=== PATIENT | female | born 1955 | race Caucasian/White ===

== ENCOUNTER 2020-07-22 10:11 | Emergency (ER) | payer MEDICAID ==
[~2020-07-22] VITALS: Ht 154.9 cm; Wt 84.7 kg
[~2020-07-22 10:11] MED LIST: CITA-109 PO; OMEP-84 PO
[2020-07-22 10:40] VITALS: BP 136/85
--- NOTE | 2020-07-22 13:04 | NUR ---
Attempted to call patient back to room for the third time and she was not in lobby. Called patient on listed number and number had been disconnected. Dr. Alvarado aware.
== END 2020-07-22 13:08 | disposition left against medical advice (07) ==
LOC: ER 10:12
DX: M25.551 Pain in right hip (principal); Z53.21 Procedure and treatment not carried out due to patient leaving prior to being seen by health care provider

== ENCOUNTER 2023-05-13 15:37 | Emergency (ER) | payer MEDICARE, MEDICAID ==
[~2023-05-13] VITALS: Ht 154.9 cm; Wt 90.9 kg
[2023-05-13] MEDS: LORazepam 1 MG tablet PO ONE (16:19)
[2023-05-13 17:24] VITALS: BP 101/72; PULSE 78; RESP 15; TEMP 98.6; O2SAT 98
== END 2023-05-13 17:26 | disposition home or self-care (01) ==
LOC: ER 15:37
DX: S16.1XXA Strain of muscle, fascia and tendon at neck level, initial encounter (principal); F41.9 Anxiety disorder, unspecified; Z88.0 Allergy status to penicillin; Z88.8 Allergy status to other drugs, medicaments and biological substances; V89.2XXA Person injured in unspecified motor-vehicle accident, traffic, initial encounter; Y93.89 Activity, other specified; Y92.89 Other specified places as the place of occurrence of the external cause; Y99.8 Other external cause status
CPT/HCPCS: 72040; 99283

== ENCOUNTER 2023-08-24 06:49 | Outpatient (CLI) | payer MEDICARE, MEDICAID ==
[~2023-08-24 06:49] MED LIST changes: +GADOTERATE MEGLUMINE 7.5 MMOL/15 ML VIAL IV ONE; +LIDOcaine 1% 30ml preserv. free vial ONE; +LIDOcaine 1%/PF 5ML 10 MG/ML VIAL ONE; +iohexol 300 MG/1 ML 50ml polymer ONE
== END 2023-08-24 23:59 | disposition home or self-care (01) ==
LOC: RAD 06:49 → EDSTATUS 07:30 → RAD 23:59
PROVIDERS: ATTEND Pediatrics Sports Medicine
DX: M25.532 Pain in left wrist (principal); Z79.899 Other long term (current) drug therapy; Z90.13 Acquired absence of bilateral breasts and nipples; Z98.891 History of uterine scar from previous surgery; Z98.890 Other specified postprocedural states; Z88.0 Allergy status to penicillin; Z88.1 Allergy status to other antibiotic agents; Z88.5 Allergy status to narcotic agent; Z88.8 Allergy status to other drugs, medicaments and biological substances; Z82.49 Family history of ischemic heart disease and other diseases of the circulatory system; Z82.61 Family history of arthritis
CPT/HCPCS: 25246; 73222; 77002; A9575; J2001; J3490; Q9967; 73115

== ENCOUNTER 2023-11-02 13:26 | Emergency (ER) | payer MEDICARE, MEDICAID ==
[~2023-11-02] VITALS: Ht 154.9 cm; Wt 88.4 kg
[~2023-11-02 13:26] MED LIST changes: -GADOTERATE MEGLUMINE 7.5 MMOL/15 ML VIAL IV ONE; -LIDOcaine 1% 30ml preserv. free vial ONE; -LIDOcaine 1%/PF 5ML 10 MG/ML VIAL ONE; -iohexol 300 MG/1 ML 50ml polymer ONE
[2023-11-02] MEDS: bacitracin 15gm ointment TP ONE (14:52)
[2023-11-02 15:03] VITALS: BP 108/62; PULSE 56; RESP 17; TEMP 98.2; O2SAT 98
== END 2023-11-02 15:08 | disposition home or self-care (01) ==
LOC: ER 13:26
DX: S93.401A Sprain of unspecified ligament of right ankle, initial encounter (principal); S80.212A Abrasion, left knee, initial encounter; Z88.0 Allergy status to penicillin; Z88.5 Allergy status to narcotic agent; Z88.6 Allergy status to analgesic agent; Z88.2 Allergy status to sulfonamides; Z91.041 Radiographic dye allergy status; Z79.899 Other long term (current) drug therapy; W01.0XXA Fall on same level from slipping, tripping and stumbling without subsequent striking against object, initial encounter; Y93.89 Activity, other specified; Y92.89 Other specified places as the place of occurrence of the external cause; Y99.8 Other external cause status
CPT/HCPCS: 73564; 73610; 99284; A6258; A6449; J7030; L4360